=== PATIENT | female | born 1990 | race Caucasian/White ===

== ENCOUNTER → 2016-09-10 | Outpatient (CLI) | payer BC ==
--- NOTE | 2016-09-10 10:19 | US ---
EXAMINATION TYPE: US pelvic complete DATE OF EXAM: 09/10/2016 9:44 AM COMPARISON: Prior pelvic ultrasound June 28, 2014 CLINICAL HISTORY: Z30.430 IUD Placement. Pain during intercourse after IUD has been in, María IUD lorne neil in June, TECHNIQUE: TA, offered TV for additional IUD imaging and patient declined Date of LMP: June EXAM MEASUREMENTS: Uterus: 12.1 x 7.5 x 3.3 cm Endometrial Stripe: 0.4 cm Right Ovary: 3.1 x 2.7 x 3.8 cm Left Ovary: 2.7 x 3.4 x 2.3 cm TECHNOLOGIST IMPRESSION: 1. Uterus: Anteverted wnl 2. Endometrium: wnl, IUD Seen in fundal portion 3. Right Ovary: wnl 4. Left Ovary: wnl 5. Bilateral Adnexa: wnl 6. Posterior cul-de-sac: wnl Uterus is anteverted in shape and within normal limits in size. Linear hyperechoic structure centrall y in uterus is felt to reflect successfully positioned IUD. Exam is slightly suboptimal as patient re fused transvaginal imaging to confirm. No free fluid is seen in pelvis. Both ovaries are present. No suspicious adnexal masses seen bilaterally. IMPRESSION: Slightly suboptimal study with IUD felt satisfactory in position on transabdominal evalua tion in sagittal and transverse planes.
== END | disposition home or self-care (01) ==
LOC: RADUSWWP 09:33
PROVIDERS: ATTEND Obstetrics & Gynecology
DX: Z30.430 Encounter for insertion of intrauterine contraceptive device (principal)
CPT/HCPCS: 76856

== ENCOUNTER 2021-01-27 11:14 | Emergency (ER) | payer OTHER ==
[2021-01-27 11:25] VITALS: RESP 18; TEMP 98.2
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
[2021-01-27 12:27] VITALS: BP 105/78; PULSE 78
== END 2021-01-27 12:27 | disposition home or self-care (01) ==
LOC: EC 11:14
DX: S16.1XXA Strain of muscle, fascia and tendon at neck level, initial encounter (principal); G44.309 Post-traumatic headache, unspecified, not intractable; J45.909 Unspecified asthma, uncomplicated; F17.200 Nicotine dependence, unspecified, uncomplicated; Z79.1 Long term (current) use of non-steroidal anti-inflammatories (NSAID); V89.2XXA Person injured in unspecified motor-vehicle accident, traffic, initial encounter; Y92.410 Unspecified street and highway as the place of occurrence of the external cause
CPT/HCPCS: 70450; 72125; 99284

== ENCOUNTER → 2022-09-26 | Outpatient (CLI) | payer OTHER ==
--- NOTE | 2022-09-26 11:09 | US ---
EXAMINATION TYPE: US pelvis complete transvag DATE OF EXAM: 09/26/2022 COMPARISON: US 2017 CLINICAL HISTORY: R10.2 PELVIC AND PERINEAL PAIN. Bloating and pain during intercourse x couple month s, patient has IUD TECHNIQUE: Transvaginal exam only per ordering physician Date of LMP: Unknown EXAM MEASUREMENTS: Uterus: 9.2 x 3.9 x 6.4 cm Endometrial Stripe: 0.4 cm Right Ovary: not seen Left Ovary: 3.0 x 2.9 x 2.3 cm 1. Uterus: anteverted 2. Endometrium: IUD seen in place 3. Right Ovary: not seen due to overlying bowel gas 4. Left Ovary: multiple follicles 5. Bilateral Adnexa: wnl 6. Posterior cul-de-sac: small amount of free fluid, presumably physiologic. IMPRESSION: 1. No evidence for acute process. 2. IUD in appropriate position. 3. Endometrium within normal limits for thickness. 4. Nonvisualization of the right ovary.
[2022-09-26 18:40] LABS: HCG,Quantitative Serum <3.0 (0.0-6.0); Luteinizing Hormone 20.6 mIU/mL
[2022-09-26 18:43] LABS: Estradiol 71.6 pg/mL
== END | disposition home or self-care (01) ==
LOC: RADUSWWP 09:26
PROVIDERS: ATTEND Obstetrics & Gynecology
DX: R10.2 Pelvic and perineal pain (principal); Z97.5 Presence of (intrauterine) contraceptive device
CPT/HCPCS: 36415; 76830; 82670; 83001; 83002; 84403; 84439; 84443; 84479; 84702

== ENCOUNTER → 2022-12-17 | Outpatient (CLI) | payer BC, OTHER ==
--- NOTE | 2022-12-17 13:40 | US ---
EXAMINATION TYPE: US gallbladder DATE OF EXAM: 12/17/2022 COMPARISON: NONE CLINICAL INDICATION: Female, 32 years old with history of K81.9 CHOLECYSTITIS; TECHNIQUE: Multiple sonographic images of the right upper quadrant are obtained. FINDINGS: EXAM MEASUREMENTS: Liver Length: 15.2 cm Gallbladder Wall: 0.2 cm CBD: 0.4 cm Right Kidney: 9.1 x 4.8 x 5.3 cm Pancreas: partially obscured by bowel gas; only a small portion of the pancreatic neck and body is s een, remainder obscured by bowel gas shadowing. Liver: wnl Gallbladder: No stones seen Evidence for sonographic Conrad's sign: No CBD: wnl Right Kidney: No hydronephrosis or masses seen IMPRESSION: No gallstones or biliary ductal dilatation. No ancillary imaging findings of acute cholecystitis.
== END | disposition home or self-care (01) ==
LOC: RADUSWWP 09:01
PROVIDERS: ATTEND Family Medicine
DX: K81.9 Cholecystitis, unspecified (principal)
CPT/HCPCS: 76705

== ENCOUNTER → 2024-04-01 | Outpatient (CLI) | payer BC ==
--- NOTE | 2024-04-01 12:00 | US ---
EXAMINATION TYPE: US abdomen complete DATE OF EXAM: 04/01/2024 COMPARISON: 12/17/22 CLINICAL INDICATION: Female, 33 years old with history of R14.0 ABDOMINAL DISTENSION (GASEOUS); bloat ing TECHNIQUE: Grayscale and color Doppler imaging of the abdomen was performed. FINDINGS: EXAM MEASUREMENTS: Liver Length: 15.9 cm Gallbladder Wall: 0.16 cm CBD: 0.18 cm Spleen: 10.1 cm Right Kidney: 9.1 x 5.2 x 4.4 cm Left Kidney: 10.8 x 7.0 x 5.7 cm FABRIC INSPECTOR NOTES: Limited due to overlying bowel gas Pancreas: Obscured by bowel gas Liver: wnl Gallbladder: appears contracted. No stones seen Evidence for sonographic Conrad's sign: No CBD: wnl Spleen: wnl Right Kidney: wnl Left Kidney: wnl Upper IVC: wnl Abd Aorta: wnl IMPRESSION: No acute process. [facility], Workstation: [facility], 04/01/2024 11:58 AM
--- NOTE | 2024-04-01 12:17 | US ---
EXAMINATION TYPE: US pelvis complete transvag DATE OF EXAM: 04/01/2024 COMPARISON: 09/26/22 CLINICAL INDICATION: Female, 33 years old with history of R14.0 ABDOMINAL DISTENSION (GASEOUS); bloat ing, abnormal periods. Pt hasn't had a period in over 2 years. TECHNIQUE: . Transabdominal sonographic images of the pelvis were acquired. Transvaginal sonographi c images were medically necessary to better assess the following anatomy: endometrium, ovaries Date of LMP: Over 2 years ago EXAM MEASUREMENTS: Uterus: 10.9 x 6.6 x 4.3 cm Endometrial Stripe: 0.4 cm Right Ovary: 4.0 x 2.3 x 2.2 cm Left Ovary: 3.8 x 3.7 x 2.7 cm 1. Uterus: Anteverted wnl 2. Endometrium: possible trace amount of free fluid seen inside. IUD appears to be in correct positi on 3. Right Ovary: multiple follicles seen 4. Left Ovary: mulitple follicles seen. Septated cyst seen measuring 1.8 x 1.8 x 1.1cm 5. Bilateral Adnexa: wnl 6. Posterior cul-de-sac: small amount of free fluid IMPRESSION: 1. There is a nonspecific small amount of fluid within the endometrial canal. Correlate clinically. 2. There is a 1.8 cm left ovarian cyst recommend follow-up to resolution in 6-8 weeks. 3. Small amount of free fluid in the pelvis. [facility], , 04/01/2024 12:14 PM
== END | disposition home or self-care (01) ==
LOC: RADUSWWP 07:02
PROVIDERS: ATTEND Family Medicine
DX: N83.202 Unspecified ovarian cyst, left side (principal); R14.0 Abdominal distension (gaseous)
CPT/HCPCS: 76700; 76830; 76856